=== PATIENT | male | born 1950 | race Caucasian/White ===

== ENCOUNTER 2020-05-26 19:55 | Emergency (ER) | payer OTHER, MEDICARE, SELFPAY ==
[2020-05-26 20:03] VITALS: BP 99/56; PULSE 77; RESP 20; TEMP 37; O2SAT 96
--- NOTE | 2020-05-26 20:08 | DI.US.S_ITS ---
PROCEDURE: US PERIPH VENOUS LOW EXTREM LT INDICATIONS: history of DVT, foot swelling, please examine below knee TECHNIQUE: Real-time imaging, as well as color and pulse Doppler interrogation, were performed of the lower extremity deep veins from the inguinal ligament to the popliteal fossa. COMPARISON: [facility], , [employer], 04/12/2011, 12:22. FINDINGS: The common femoral, femoral and popliteal veins are normally compressible, and free of intraluminal thrombus. Color and pulse Doppler demonstrate normal phasic intraluminal flow. There is normal augmentation response to distal compression maneuver. Incidental note is made a left lower extremity arterial bypass graft, with occlusive thrombus at the popliteal level. IMPRESSION: Negative for deep venous thrombosis. Incidental note made occlusive thrombus within the arterial graft at the popliteal level. Dictated by: Trevor Ritchie M.D. on 05/26/2020 at 20:16 Approved by: Trevor Ritchie M.D. on 05/26/2020 at 20:18
--- NOTE | 2020-05-26 20:08 | ED.EXTPRO ---
HPI - Extremity Problem General Chief complaint: Extremity Injury, Lower Stated complaint: left foot swelling Time Seen by Provider: 05/26/20 19:59 Source: patient Mode of arrival: Ambulatory Limitations: no limitations History of Present Illness HPI Narrative: 69-year-old male former smoker and former drinker with history of DVTs, lower extremity vascular bypass, current chemotherapy treating esophageal liver cancer presents with left foot swelling this afternoon. He denies any injury and denies any pain. He has no redness, warmth or increased temperature to palpation. He denies any pain anywhere in his leg, swelling or redness. He was sent here by his PCP for evaluation. He denies any overuse, change in activity, diet or medications. He states the swelling seems to be better now than it was when he 1st noticed it. MD Complaint: extremity swelling Onset (ago): hour(s) Location: left Relieving factors: elevation Associated symptoms: denies other symptoms Related Data Home Medications Medication Instructions Recorded Confirmed [BERE SELTER] PO PRN PRN #0 09/06/17 levothyroxine 100 mcg PO QAM #0 09/06/17 acetaminophen 650 PO #0 09/12/17 aspirin 81 PO Q DAY #0 09/12/17 Previous Rx's Medication Instructions Recorded albuterol sulfate [Ventolin HFA] 2 puff INH Q4HP PRN #1 ea 09/15/17 cefuroxime axetil 500 mg PO BID #14 tab 09/15/17 prednisone 50 mg PO [facility] #7 tab 09/15/17 Allergies Allergy/AdvReac Type Severity Reaction Status Date / Time diphenhydramine Allergy Unknown Unverified 11/17/17 11:56 [DIPHENHYDRAMINE] prochlorperazine Allergy Unknown ANXIETY Unverified 11/17/17 11:56 [PROCHLORPERAZINE] Review of Systems Constitutional Constitutional: Denies chills, Denies fatigue, Denies fever(s), Denies frequent falls, Denies lethargy and Denies weakness Eyes Eyes: Denies change in vision, Denies eye discharge, Denies irritation and Denies loss of vision ENT Ears, Nose, Mouth, and Throat: Denies change in voice, Denies dizziness, Denies neck pain, Denies sore throat and Denies throat swelling Cardiovascular Cardiovascular: Denies chest pain, Reports pedal edema (Minimal, left only), Denies irregular heart rhythm, Denies lightheadedness, Denies palpitations, Denies dyspnea, Denies dyspnea on exertion and Denies orthopnea Respiratory Respiratory: Denies cough, Denies dyspnea, Denies dyspnea on exertion and Denies wheezing Gastrointestinal Gastrointestinal: Denies abdominal pain, Denies change in bowel habits, Denies diarrhea, Denies nausea and Denies vomiting Musculoskeletal Musculoskeletal: Denies neck pain and Denies numbness Integumentary/Breasts Skin/Breast: Denies pruritus, Denies erythema, Denies rash and Denies wounds Neurologic Neurologic: Denies behavioral changes, Denies confusion, Denies dizziness, Denies frequent falls, Denies loss of vision, Denies numbness and Denies weakness Psychiatric Psychiatric: Denies anxiety, Denies behavioral changes, Denies confusion, Denies depression, Denies homicidal ideation and Denies suicidal ideation Endocrine Endocrine: Denies fatigue, Denies flushing and Denies palpitations Hematologic/Lymphatic Hematologic/Lymphatic: Denies easy bruising Allergic/Immunologic Allergic/Immunologic: Denies urticaria, Denies throat swelling and Denies wheezing Patient History Social History Smoking Status: Former smoker Smoking Status: Former smoker alcohol intake frequency: 0-2 drinks per day Substance Use Type: does not use Exam Narrative Exam Narrative: GEN: AOx3, thin, appears chronically ill, but in no obvious distress EYES: Pupils are equal, round, and reactive to light and accommodation. Extraoccular muscles are intact bilaterally. There is no subconjunctival hemorrhage or exudate. CHEST: Lungs are clear to auscultation bilaterally and free of wheezes, rales, or rhonchi. Heart rate is regular rhythm, there are no murmurs, clicks, rubs, or gallops. There is no chest wall tenderness. ABD: Abdomen is soft and nontender. There is no guarding or rebound. Bowel sounds are normal in all 4 quadrants. There is no mass or organomegaly. EXT: Left foot with minimal edema on dorsum of foot, does not extend beyond ankles. No pain, no redness, no warmth. NO calf pain or swelling. Cap refill < 2s. No pallor. Full painless ROM of all extremities with no loss of sensation or strength. SKIN: Warm, pink, and dry. No erythema or rash Initial Vital Signs Initial Vital Signs: Vital Signs Temperature 98.6 F 05/26/20 20:03 Pulse Rate 77 05/26/20 20:03 Respiratory Rate 20 05/26/20 20:03 Blood Pressure 99/56 L 05/26/20 20:03 Pulse Oximetry 96 05/26/20 20:03 Course Orders Ordered: ED Orders 05/26/20 20:08 US periph venous low extrem lt Stat 05/26/20 21:19 Complete Blood Count AUTO DIFF Stat Prothrombin Time INR Stat Vital Signs Vital signs: Vital Signs - 8 hr 05/26/20 20:03 05/26/20 23:11 Temperature 98.6 F Pulse Rate 77 70 Respiratory Rate 20 18 Blood Pressure 99/56 L 102/58 L Pulse Oximetry 96 99 MDM - Extremity (Nontraumatic) Lab Data Result diagrams: 05/26/20 21:19 Labs: Lab Results 05/26/20 05/26/20 Range/Units 21:19 21:19 WBC 7.5 (4.5-11.0) X10^3/uL RBC 3.73 L (4.5-5.9) X10^6/uL Hgb 11.9 L (13.5-17.5) g/dL Hct 35.0 L (41-53) % MCV 93.8 (80-100) fL MCH 32.0 (26-34) PG MCHC 34.1 (30-36) % RDW 18.1 H (11.6-14.8) % Plt Count 84 L (150-400) X10^3/uL Neut % (Auto) 90.3 H (50-75) % Lymph % (Auto) 5.6 L (25-40) % Johnson % (Auto) 4.1 (3-14) % Eos % (Auto) 0.0 L (2-4) % Baso % (Auto) 0.0 (0-2) % Neut # (Auto) 6800 (8355-2767) /uL Lymph # (Auto) 400 L (2865-6806) /uL Johnson # (Auto) 300 (0-900) /uL Eos # (Auto) 0 (0-450) /uL Baso # (Auto) 0 (0-100) /uL RBC Morphology See below Anisocytosis 1+ H PT 13.6 H (10.1-12.7) SECONDS INR 1.2 (0.9-1.3) MDM Narrative Medical decision making narrative: Multiple etiologies for patient's symptoms considered including: [DVT versus cellulitis versus other] Patient's symptoms improved over duration of stay with above-stated therapies. Findings and discharge diagnosis discussed with patient/family followed by verbalization of understanding Return precautions discussed with patient/family whom verbalize understanding. Discharge Plan Departure Patient Disposition: Home Clinical Impression: Foot swelling Discharge Date/Time: 05/26/20 23:11 Instructions: DI for Dependent Edema Activity Restrictions/Additional Instructions: *You have been diagnosed with [left foot swelling. No evidence of infection or DVT.] *What to do: * continue to take medications as directed *Follow up with your primary care provider in 2-3 days, call for an appointment. Let them know you were seen in the Emergency Department and that we ask that you be seen in follow up *Return to ER if you should have any new, worsening or concerning symptoms, such as [worsening swelling, redness, pain, or other bothersome symptoms ] Prescriptions: No Action levothyroxine 100 MCG tablet 100 mcg PO QAM Qty: 0 RF: 0 [BERE SELTER] PO PRN PRNQty: 0 RF: 0 aspirin 81 MG tablet,delayed release (DR/EC) 81 PO Q DAY Qty: 0 RF: 0 acetaminophen 325 MG tablet 650 PO Qty: 0 RF: 0 prednisone 50 MG tablet 50 mg PO [facility] Qty: 7 RF: 0 cefuroxime axetil 500 MG tablet 500 mg PO BID Qty: 14 RF: 0 albuterol sulfate [Ventolin HFA] 90 MCG/PUFF HFA aerosol inhaler 2 puff INH Q4HP PRNQty: 1 RF: 0 Referrals: Quang Fagan ARNP [Primary Care Provider] -
[2020-05-26 21:33] LABS: Basophils Absolute Auto 0 /uL (0-100); Eosinophils Absolute Auto 0 /uL (0-450); Hemoglobin 11.9 g/dL (13.5-17.5); Lymphocytes Absolute Auto 400 /uL (1100-4500); Lymphocytes Percent Auto 5.6 % (25-40); Monocytes Absolute Auto 300 /uL (0-900)
[2020-05-26 21:35] LABS: INR 1.2 (0.9-1.3); Prothrombin Time 13.6 SECONDS (10.1-12.7)
[2020-05-26 21:39] LABS: Mean Corpuscular HGB Conc 34.1 % (30-36); Mean Corpuscular Volume 93.8 fL (80-100); Monocytes Percent Auto 4.1 % (3-14); Neutrophils Absolute Auto 6800 /uL (1500-7000); Neutrophils Percent Auto 90.3 % (50-75); Red Blood Cell Count 3.73 X10^6/uL (4.5-5.9); Red Cell Distribution Width 18.1 % (11.6-14.8); White Blood Cell Count 7.5 X10^3/uL (4.5-11.0)
[2020-05-26 21:40] LABS: Add Manual Diff / Slide Review SLIDE REVIEW; Platelet Count 84 X10^3/uL (150-400)
[2020-05-26 21:56] LABS: Anisocytosis 1+
[2020-05-26 23:11] VITALS: BP 102/58; PULSE 70; RESP 18; O2SAT 99
== END 2020-05-26 23:11 | disposition home or self-care (01) ==
PROVIDERS: Emergency Provider Emergency Medicine; PCP Nurse Practitioner Family; Referring Provider Nurse Practitioner Family
DX: M79.89 Other specified soft tissue disorders (principal)
CPT/HCPCS: 36415; 85025; 85610; 93971; 99283; 99284

== ENCOUNTER 2020-07-29 11:15 | Emergency (ER) | payer OTHER, SELFPAY ==
[2020-07-29] VITALS (7 sets, daily range): BP systolic 162–208; BP diastolic 96–102; PULSE 81–86; RESP 13–26; TEMP 36.8; O2SAT 92–97; BMI 40.9
--- NOTE | 2020-07-29 11:34 | DI.RAD.S_ITS ---
PROCEDURE: XR CHEST 1V INDICATIONS: chest pain TECHNIQUE: One view of the chest was acquired. COMPARISON: [facility], CT, CT ANGIO CHEST PE PROTOCOL, 07/29/2020, 12:18. [facility], CR, CHEST 2 VIEW, 09/14/2017, 19:11. [facility], CR, CHEST 2 VIEW, 09/12/2017, 19:51. FINDINGS: Surgical changes and devices: Port-A-Cath from right-sided approach extends in normal position.. Lungs and pleura: Lungs are abnormal with a smoothly marginated radiodensity superimposed on the lateral left lower lung, in an area of what appears to be osteolytic change involving the underlying rib. This also is visible on CT scanning obtained same day.. No pleural effusions or pneumothorax. Mediastinum: Mediastinal contours appear normal. Heart size is normal. Bones and chest wall: No suspicious bony lesions. Overlying soft tissues appear unremarkable. 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 Dictated by: Juan Carlos Park M.D. on 07/29/2020 at 12:53 Approved by: Juan Carlos Park M.D. on 07/29/2020 at 12:54
--- NOTE | 2020-07-29 11:34 | ED_ITS ---
HPI - Chest Pain General Chief Complaint: Chest Pain Stated Complaint: Chest pain Time Seen by Provider: 07/29/20 11:19 Source: patient and family Limitations: no limitations History of Present Illness HPI narrative: This is a 70-year-old male who comes to the emergency department with complaint of increased chest pain. Patient states chest pain is new started about 1:00 a.m. this morning. Him and his state that it was accompanied by a lot of eructation so they suspected maybe his abdomen but it did not improve. Patient's states she checked his blood pressure which was hypertensive. He denies any shortness of breath. Describes the pain is the left side of his chest but as 3 cm area below the nipple. It is not reprod ucible with palpation. Patient also has developed a large bony like mass on the left posterior back which is nontender. Patient has not any fevers, no cold cough or chills. He had a very large bowel movement yesterday he has had no issues with urination. Patient has a known arterial bypass that is failing in his right lower extremity and he has developed clot, he has known esophageal cancer with metastases to liver, lung him back and they suspect that the lump on his back is a bone spur or secondary to his cancer. He is supposed to start targeted radiation for bone pain. He is on oral narcotic pain medication including extended release oxycodone 60 mg twice daily, Oxy Contin 5 mg 8 times per day, cranium and CBD lotion and they have just added ibuprofen as needed. He was just transition to hospice this week by his care team at the [facility]. Related Data Home Medications Medication Instructions Recorded Confirmed [BERE GONZALEZ] PO PRN PRN #0 09/06/17 levothyroxine 100 mcg PO QAM #0 09/06/17 acetaminophen 650 PO #0 09/12/17 aspirin 81 PO Q DAY #0 09/12/17 Previous Rx's Medication Instructions Recorded albuterol sulfate [Ventolin HFA] 2 puff INH Q4HP PRN #1 ea 09/15/17 cefuroxime axetil 500 mg PO BID #14 tab 09/15/17 prednisone 50 mg PO [facility] #7 tab 09/15/17 hydromorphone [Dilaudid] 2 mg PO Q4-6H PRN #20 tab 07/29/20 Allergies Allergy/AdvReac Type Severity Reaction Status Date / Time diphenhydramine Allergy Unknown Unverified 11/17/17 11:56 [DIPHENHYDRAMINE] prochlorperazine Allergy Unknown ANXIETY Unverified 11/17/17 11:56 [PROCHLORPERAZINE] Review of Systems Review of Systems ROS Unobtainable: All systems reviewed & are unremarkable except as noted in HPI and below Patient History Social History Smoking Status: Former smoker Smoking Status: Former smoker alcohol intake frequency: 0-2 drinks per day Substance Use Type: does not use Exam Narrative Exam Narrative: GENERAL: Alert and oriented x three, thin, elderly appearing male HEENT: Head normocephalic, atraumatic, EOMI, pupils reactive, face symmetric, mo ist mucous membranes NECK: Supple, full range of motion CARDIOVASCULAR: Regular rate and rhythm without murmurs, rubs or gallops. RESPIRATORY: Breath sounds equal bilaterally, no wheezes rales or rhonchi. ABDOMEN: Soft, nontender. Normoactive bowel sounds all 4 quadrants. No guarding or rebound, rigidity, no mass : No CVA tenderness EXTREMITIES: Normal range of motion, no clubbing. Neurovascularly intact NEUROLOGICAL: Cranial nerves II through XII grossly intact. Moving all extremities SKIN: Warm, dry, no petechiae, no rashes or lesions. Patient does have a large hard lump on his left lateral back that is approximately 2 cm in height and 3-4 cm across. Initial Vital Signs Initial Vital Signs: Vital Signs Temperature 98.3 F 07/29/20 11:32 Pulse Rate 84 07/29/20 11:32 Respiratory Rate 26 H 07/29/20 11:32 Blood Pressure 200/99 H 07/29/20 11:32 Pulse Oximetry 96 07/29/20 11:32 Course Orders Ordered: ED Orders 07/29/20 11:23 Complete Blood Count AUTO DIFF Stat Comprehensive Metabolic Panel Stat Lipase Stat NT-proBNP (BNP-Adult 18+) Stat Partial Thromboplastin Time Stat Prothrombin Time INR Stat Troponin & CK Cardiac Panel Stat 07/29/20 11:34 XR chest 1V Stat EKG-12 Lead Stat 07/29/20 12:17 CT angio chest PE protocol Stat 07/29/20 12:24 Consult to TRACK DRESSER - Supervisor Inspection And Testing Stat 07/29/20 12:49 COVID19 Stat Discontinued Medications Aspirin (Aspirin 81 Mg Chew Tab) 324 mg PO NOW ONE Stop: 07/29/20 11:35 Last Admin: 07/29/20 11:35 Dose: Not Given Documented by: MARIA L Hydromorphone HCl (Hydromorphone 1 Mg Inj) 1 mg IV NOW ONE Stop: 07/29/20 12:18 Last Admin: 07/29/20 12:46 Dose: 1 mg Documented by: MARIA L Hydromorphone HCl (Hydromorphone 1 Mg Inj) 1 mg IV NOW ONE Stop: 07/29/20 13:35 Last Admin: 07/29/20 13:51 Dose: 1 mg Documented by: MARIA L Sodium Chloride (Normal Saline 0.9%) 1,000 mls @ 150 mls/hr IV CONT MAUREEN Last Infusion: 07/29/20 14:00 Dose: 0 mls/hr Documented by: MARIA L Admin: 07/29/20 11:50 Dose: 150 mls/hr Documented by: MARIA L Consultations Consultation #1: Dr. Villalobos with general surgery. Plan to discuss goals of care with patient and please to recontact dependent on goals of care. Time: 13:01 Consultation #2: Spoke with Dr. Keating hospitalist about possibly observing patient for his apical pneumothorax. Unclear if patient would even want a chest tube if it continued to advance in size. He is transitioning to hospice with plan for comfort measures but has not fully transitioned yet. His main concern today is pain control for his left-sided chest wall pain which was improved after 1 mg of Dilaudid in the ED. Dr. keating suggest DC home with patient to retu rn if worsening symptoms and otherwise to continue with hospice transition. Time: 13:20 Vital Signs Vital signs: Vital Signs - 8 hr 07/29/20 12:35 07/29/20 12:36 07/29/20 13:00 Pulse Rate 84 85 82 Respiratory Rate 19 17 13 Blood Pressure 208/102 H 162/96 H Pulse Oximetry 92 95 96 07/29/20 13:30 07/29/20 14:01 Pulse Rate 84 81 Respiratory Rate 15 15 Blood Pressure 187/97 H 187/97 H Pulse Oximetry 96 96 MDM - Chest Pain Lab Data Attestation: I reviewed the patient's lab results. Result diagrams: 07/29/20 11:23 07/29/20 11:23 Labs: Lab Results 07/29/20 07/29/20 07/29/20 Range/Units 11:23 11:23 11:23 WBC 11.7 H (4.5-11.0) X10^3/uL RBC 3.94 L (4.5-5.9) X10^6/uL Hgb 12.1 L (13.5-17.5) g/dL Hct 35.6 L (41-53) % MCV 90.5 (80-100) fL MCH 30.8 (26-34) PG MCHC 34.0 (30-36) % RDW 15.4 H (11.6-14.8) % Plt Count 100 L (150-400) X10^3/uL Neut % (Auto) 86.9 H (50-75) % Lymph % (Auto) 5.4 L (25-40) % [place] % (Auto) 6.0 (3-14) % Eos % (Auto) 1.3 L (2-4) % Baso % (Auto) 0.4 (0-2) % Neut # (Auto) 47593 H (8783-9588) /uL Lymph # (Auto) 600 L (4432-4539) /uL [place] # (Auto) 700 (0-900) /uL Eos # (Auto) 200 (0-450) /uL Baso # (Auto) 0 (0-100) /uL PT 14.0 H (10.1-12.7) SECONDS INR 1.2 (0.9-1.3) APTT 29 (26.4-36.2) SECONDS Sodium 128 L (137-145) mmol/L Potassium 3.8 (3.4-5.1) mmol/L Chloride 93 L (98-107) mmol/L Carbon Dioxide 32 (22-32) mmol/L BUN 17 (9-20) mg/dL Creatinine 0.57 L (0.66-1.25) mg/dL Estimated GFR > 60.0 (>60) mL/min BUN/Creatinine Ratio 29.8 H (6-22) Glucose 127 H (80-110) mg/dL Calcium 8.7 (8.4-10.2) mg/dL Total Bilirubin 1.5 H (0.2-1.3) mg/dL AST 55 (17-59) IU/L ALT 14 (<50) IU/L Alkaline Phosphatase 325 H (38-126) U/L Total Creatine Kinase 145 (55-170) U/L CK-MB (CK-2) < 0.22 (<2.37) ng/mL CK-MB (CK-2) Rel Index 0.2 L (1.5-5.0) % Troponin I < 0.012 (0.01-0.034) ng/mL NT-Pro-B Natriuret Pep 382 H (<125) pg/mL Total Protein 6.9 (6.3-8.2) g/dL Albumin 3.6 (3.5-5.0) g/dL Globulin 3.3 (1.7-4.1) g/dL Albumin/Globulin Ratio 1.1 (1.0-2.8) Lipase 166 (23-300) U/L COVID-19 PCR (Negative) 07/29/20 Range/Units 12:49 WBC (4.5-11.0) X10^3/uL RBC (4.5-5.9) X10^6/uL Hgb (13.5-17.5) g/dL Hct (41-53) % MCV (80-100) fL MCH (26-34) PG MCHC (30-36) % RDW (11.6-14.8) % Plt Count (150-400) X10^3/uL Neut % (Auto) (50-75) % Lymph % (Auto) (25-40) % [place] % (Auto) (3-14) % Eos % (Auto) (2-4) % Baso % (Auto) (0-2) % Neut # (Auto) (0302-2924) /uL Lymph # (Auto) (8623-6834) /uL [place] # (Auto) (0-900) /uL Eos # (Auto) (0-450) /uL Baso # (Auto) (0-100) /uL PT (10.1-12.7) SECONDS INR (0.9-1.3) APTT (26.4-36.2) SECONDS Sodium (137-145) mmol/L Potassium (3.4-5.1) mmol/L Chloride (98-107) mmol/L Carbon Dioxide (22-32) mmol/L BUN (9-20) mg/dL Creatinine (0.66-1.25) mg/dL Estimated GFR (>60) mL/min BUN/Creatinine Ratio (6-22) Glucose (80-110) mg/dL Calcium (8.4-10.2) mg/dL Total Bilirubin (0.2-1.3) mg/dL AST (17-59) IU/L ALT (<50) IU/L Alkaline Phosphatase (38-126) U/L Total Creatine Kinase (55-170) U/L CK-MB (CK-2) (<2.37) ng/mL CK-MB (CK-2) Rel Index (1.5-5.0) % Troponin I (0.01-0.034) ng/mL NT-Pro-B Natriuret Pep (<125) pg/mL Total Protein (6.3-8.2) g/dL Albumin (3.5-5.0) g/dL Globulin (1.7-4.1) g/dL Albumin/Globulin Ratio (1.0-2.8) Lipase (23-300) U/L COVID-19 PCR Negative (Negative) MDM Narrative Medical decision making narrative: 70-year-old male comes to the emergency department with acute on chronic pain. Patient has left-sided chest wall pain that they are concerned about possible lytic lesion versus blood clot or other cardiac cause. Patient has a obvious lytic lesion on CT. Pain is improved with allotted. Incidentally was found have a right-sided apical pneumothorax which is small. After prolonged discussion with patient and family about goals of care, hospitalist as well as general surgeon decision was made for patient to return home but to return if worsening shortness of breath or symptoms. We also discussed increasing his oral pain medication for his left-sided chest wall pain as he found the IV Dilaudid significantly improving. states that they are currently transitioning and hospice they are getting a hospital bed delivered in the next day, the nursing staff has been in contact with them but they are not fully staffed up. Discharge Plan Departure Patient Disposition: Home Clinical Impression: Pneumothorax on right, Chest pain Instructions: DI for Pneumothorax Activity Restrictions/Additional Instructions: Follow-up with your hospice service. Let them know about todays findings. Today you have a small apical pneumothorax noted on your CT. If you have worsening chest pain, shortness of breath, lightheadedness, passing, persistent vomiting or other new or concerning symptoms return to the ER as these can sometimes increase in size. Her left-sided chest pain lytic lesion at your left 8th rib. Continue home pain medication as prescribed. You may take dilaudid 1 tablet every 4-6 hours as needed in addition to her home pain medication for breakthrough pain. Make sure you are taking a stool softener of some form such as Colace to prevent constipation. Prescriptions: New hydromorphone [Dilaudid] 2 mg tablet 2 mg PO Q4-6H PRN (Reason: pain) Qty: 20 RF: 0 No Action levothyroxine 100 MCG tablet 100 mcg PO QAM Qty: 0 RF: 0 [BERE SELTER] PO PRN PRNQty: 0 RF: 0 aspirin 81 MG tablet,delayed release (DR/EC) 81 PO Q DAY Qty: 0 RF: 0 acetaminophen 325 MG tablet 650 PO Qty: 0 RF: 0 prednisone 50 MG tablet 50 mg PO [facility] Qty: 7 RF: 0 cefuroxime axetil 500 MG tablet 500 mg PO BID Qty: 14 RF: 0 albuterol sulfate [Ventolin HFA] 90 MCG/PUFF HFA aerosol inhaler 2 puff INH Q4HP PRNQty: 1 RF: 0 Referrals: Quang Fagan ARNP [Primary Care Provider] -
[2020-07-29 11:45] LABS: Add Manual Diff / Slide Review NO; Basophils Absolute Auto 0 /uL (0-100); Basophils Percent Auto 0.4 % (0-2); Eosinophils Absolute Auto 200 /uL (0-450); Eosinophils Percent Auto 1.3 % (2-4); Hematocrit 35.6 % (41-53); Hemoglobin 12.1 g/dL (13.5-17.5); Lymphocytes Absolute Auto 600 /uL (1100-4500); Lymphocytes Percent Auto 5.4 % (25-40); Mean Corpuscular Hemoglobin 30.8 PG (26-34); Mean Corpuscular Volume 90.5 fL (80-100); Monocytes Absolute Auto 700 /uL (0-900); Neutrophils Absolute Auto 10200 /uL (1500-7000); Neutrophils Percent Auto 86.9 % (50-75); Platelet Count 100 X10^3/uL (150-400); Red Blood Cell Count 3.94 X10^6/uL (4.5-5.9); Red Cell Distribution Width 15.4 % (11.6-14.8); White Blood Cell Count 11.7 X10^3/uL (4.5-11.0)
[2020-07-29 11:48] LABS: INR 1.2 (0.9-1.3)
[2020-07-29] MEDS: SODIUM CHLORIDE 0.9% 1,000 ML 150 ML IV (11:50)
[2020-07-29 11:51] LABS: PTT Partial Thromboplastin Tim 29 SECONDS (26.4-36.2)
[2020-07-29 11:52] LABS: Alanine Aminotransferase 14 IU/L (<50); Albumin 3.6 g/dL (3.5-5.0); Albumin Globulin Ratio 1.1 (1.0-2.8); Alkaline Phosphatase 325 U/L (38-126); Aspartate Aminotransferase 55 IU/L (17-59); BUN Creatinine Ratio 29.8 (6-22); Bilirubin Total 1.5 mg/dL (0.2-1.3); Blood Urea Nitrogen 17 mg/dL (9-20); Calcium 8.7 mg/dL (8.4-10.2); Carbon Dioxide 32 mmol/L (22-32); Chloride 93 mmol/L (98-107); Creatine Kinase 145 U/L (55-170); Estimated Glomerular Filt Rate > 60.0 mL/min (>60); Globulin 3.3 g/dL (1.7-4.1); Glucose 127 mg/dL (80-110); HEMOLYSIS < 15 (0-50); Lipase 166 U/L (23-300); Potassium 3.8 mmol/L (3.4-5.1); Sodium 128 mmol/L (137-145); Total Protein 6.9 g/dL (6.3-8.2)
[2020-07-29 12:04] LABS: NT-proBNP (BNP-Adult 18+) 382 pg/mL (<125); Troponin I < 0.012 ng/mL (0.01-0.034)
[2020-07-29 12:07] LABS: CKMB % Relative Index 0.2 % (1.5-5.0); Creatine Kinase MB < 0.22 ng/mL (<2.37)
--- NOTE | 2020-07-29 12:17 | DI.CT.S_ITS ---
PROCEDURE: CT ANGIO CHEST PE PROTOCOL INDICATIONS: PE and/or metastates? chest pain, known ca and clot in leg TECHNIQUE: After the administration of intravenous contrast, 2 mm thick sections acquired from the pulmonary apices to the posterior costophrenic angles. 3-dimensional maximum intensity projection (MIP) coronal and sagittal reformats were then acquired through the thorax. For radiation dose reduction, the following was used: automated exposure control, adjustment of mA and/or kV according to patient size. COMPARISON: [facility], CT, CT ANGIO CHEST PE, 01/10/2020, 10:19. FINDINGS: Image quality: Excellent. Pulmonary arteries: Pulmonary arteries are normal in size, and demonstrate no intraluminal filling defects to suggest central pulmonary embolism. Small right apical pneumothorax is seen. There are basilar patchy consolidative opacities. No definite pleural effusion is seen. There are innumerable bilateral variable sized pulmonary nodules, most likely representing pulmonary metastases measuring up to 8 mm in the posterior right lower lobe. Lytic left 8 rib lesion, with associated soft tissue component in keeping with chest wall metastasis. Mediastinum: Heart size is normal, without pericardial effusion. Coronary artery calcifications are present. No definite pathologically enlarged mediastinal or hilar lymphadenopathy. Thoracic aorta is normal in caliber and enhancement. Scattered vascular calcifications seen in the aorta. No suspicious bony lesions. Ribs and thoracic spine appear intact throughout. Thyroid is grossly unremarkable No axillary or supraclavicular adenopathy. Abdomen: Innumerable poorly defined hypoattenuating liver lesions in keeping with metastatic disease, as before. Small hiatal hernia IMPRESSION: Small right apical pneumothorax. Findings were personally telephoned and discussed with Dr. Cobb in the emergency department at 1249 hours 07/29/20. Interval development of innumerable bilateral pulmonary metastases, and a large left chest wall lytic lesion involving the left 8th rib and adjacent soft tissues. Posterior dependent patchy consolidation which could represent scarring/atelectasis versus aspiration or pneumonia. No evidence of pulmonary embolism. No aortic dissection identified. Hepatic metastases Small hiatal hernia Dictated by: Smith Donato M.D. on 07/29/2020 at 12:37 Approved by: Smith Donato M.D. on 07/29/2020 at 12:49
[2020-07-29] MEDS: HYDROMORPHONE 1 MG INJ IV ×2 (12:46→13:51)
[2020-07-29 13:15] LABS: COVID19 -Nasal RAPID Negative (Negative)
== END 2020-07-29 14:03 | disposition home or self-care (01) ==
PROVIDERS: Emergency Provider Emergency Medicine; PCP Nurse Practitioner Family
DX: J93.83 Other pneumothorax (principal); R07.9 Chest pain, unspecified; Z20.828 Contact with and (suspected) exposure to other viral communicable diseases; G89.3 Neoplasm related pain (acute) (chronic); M89.9 Disorder of bone, unspecified; C15.9 Malignant neoplasm of esophagus, unspecified; C78.7 Secondary malignant neoplasm of liver and intrahepatic bile duct; C78.00 Secondary malignant neoplasm of unspecified lung
CPT/HCPCS: 36415; 71045; 71275; 80053; 82550; 82553; 83690; 83880; 84484; 85025; 85610; 85730; 87635; 93005; 96361; 96374; 96376; 99283; 99284; J1170